=== PATIENT | female | born 1960 | race Caucasian/White ===

== ENCOUNTER → 2018-03-01 | Outpatient (CLI) | payer OTHER ==
[~2018-03-01] MED LIST: DEPO METHYLPREDNISOLONE 40 MG/ML SDV ONE; LIDOCAINE 1% 300 MG/30 ML SDV ONE
== END ==
LOC: FIMAGING 12:17
PROVIDERS: ATTEND Orthopaedic Surgery Sports Medicine
PROC: 3E0U3BZ Introduction of Anesthetic Agent into Joints, Percutaneous Approach (ICD-10-PCS; principal; 2018-03-01)
DX: M25.511 Pain in right shoulder (principal)
CPT/HCPCS: J1030